=== PATIENT | male | born 1985 ===

== ENCOUNTER → 2024-03-30 | Outpatient (CLI) | payer BC ==
--- NOTE | 2024-03-31 08:39 | DVHSR ---
APPROVED REPORT EXAM: Two-dimensional and M-mode echocardiogram with Doppler and color Doppler. DIMENSIONS LVDd4.7 (3.8-5.7cm)LA (2D)4.0 (1.9-4.0cm)Aortic Root2.9 (2.0-3.7cm) LVDs3.2 (2.5-4.0cm)LA (MM) (1.9-4.0cm)Aortic Cusp Exc1.9 (1.5-2.0cm) EF (%) 59.6 (55-70%)Rt. Atrium4.4 (1.9-4.0cm)Asc. Aorta cm IVSd1.2 (0.7-1.1cm)RV (D)4.0 (1.8-2.4cm) PWd1.3 (0.7-1.1cm) Mitral Valve MitralMitral Stenosis E wave1.00m/sMV Mean GR.mmHg A wave0.56m/sMV Peak GR.28mmHg E/A ratio1.82D MVAcm2 DECEL [id number] 1/2 [place] Aortic Valve Aortic ValveAortic Stenosis V10.88m/Yina Mean GR.5mmHg V21.54m/Yina Peak GR.10mmHg Pulmonic Valve V20.76m/s Tricuspid Valve TR Velocity2.08m/s [id number] LEFT VENTRICLE The Ejection Fraction is >55%. RIGHT VENTRICLE The right ventricle is mildly dilated. ATRIA The left atrial size is normal. The right atrium is mildly dilated. MITRAL VALVE The mitral valve is normal in structure and function. Mitral regurgitation is trace to mild. PULMONIC VALVE The pulmonic valve is not well visualized. TRICUSPID VALVE The tricuspid valve is grossly normal. There is trace to mild tricuspid regurgitation. AORTIC VALVE The aortic valve opens well. No aortic regurgitation is present. GREAT VESSELS The aortic root is normal size. PERICARDIAL EFFUSION There is no pericardial effusion. Conclusion LUCITA EF >55% MILD TR
== END | disposition home or self-care (01) ==
LOC: Rad HDHVI 11:05
PROVIDERS: ATTEND Internal Medicine Cardiovascular Disease
DX: I08.1 Rheumatic disorders of both mitral and tricuspid valves (principal); I10 Essential (primary) hypertension
CPT/HCPCS: 93306

== ENCOUNTER → 2024-04-14 | Outpatient (CLI) | payer BC ==
[~2024-04-14] VITALS: Ht 180.3 cm; Wt 95.3 kg
--- NOTE | 2024-04-28 14:26 | DVHSR ---
APPROVED REPORT Exam: Nuclear Stress Test Indication: Screening for CAD Ht: 5 ft 11 in Wt: 210 lbs BSA: 2.15 m2 HR: 63 bpm BP: 153/82 mmHg BMI: 29.28 Rhythm: NSR Medical History Medical History: HTN Medications: Dyazide, Fish Oil, Garlic, Vit C, Lotensin Allergies: No known drug allergies Cardiac Risk Factors: Family Hx of CAD Stress Test Details Stress Test: Exercise stress testing was performed using a Ishan protocol. HR Resting HR: 63 bpmMax Heart Rate (APMHR): 180.900547 bpm Max HR Achieved: 157 bpmTarget HR (85% APMHR): 153.185071 bpm % of APMHR: 87.22 Recovery HR: 86 bpm HR response to stress: Normal HR response to stress BP Resting BP: 153/82 mmHg Max BP: 210/69 mmHg Recovery BP: 137/69 mmHg BP response to stress: Resting hypertension- Exaggerated response ECG Resting ECG: Sinus Rhythm Stress ECG: Sinus Tachycardia Arrhythmia: PACs Recovery ECG: Sinus Rhythm Clinical Reason for Termination: Target HR achieved Stress Symptoms: None Exercise duration: 8 min 45 sec Exercise capacity: 10.1 METs Stress ECG Conclusion ECG RESPONSE NON ISCHEMIC CARDIOLITE IMAGES NO PERFUSION ABNL LESS THAN 10% LIKELIHOOD FOR STRESS INDUCED ISCHEMIA EF 50% NM EXAM: Myocardial Perfusion REST/STRESS Imaging Protocol: Rest Tc-99m/Stress Tc-99m 1 day Resting Data Rest SPECT myocardial perfusion imaging was performed in supine position 30 minutes following the int ravenous injection of 10.61 mCi of Tc-99m Sestamibi. Time of rest injection: 817 Time of rest imagin Administration Route: IV Administration Site: Left AC Exercise Stress At peak stress, the patient was injected intravenously with 30.8 mCi of Tc-99m Sestamibi. Time of stress injection: 922 Time of stress imagin Administration Route: IV Administration Site: Left AC Heart Rate at time of stress injection: 157 bpm. Patient continued to exercise for 1 minute(s). Gated Stress SPECT was performed 15 minutes after stress injection. The images were gated to evaluate regional wall motion and calculate left ventricular ejection fracti on. Comments Cardiolite injection at 7 minutes, 44 seconds into test. Study Data Post stress, the left ventricular ejection was 50%.. Nuclear Conclusion ECG RESPONSE NON ISCHEMIC CARDIOLITE IMAGES NO PERFUSION ABNL LESS THAN 10% LIKELIHOOD FOR STRESS INDUCED ISCHEMIA EF 50%
== END | disposition home or self-care (01) ==
LOC: Rad HDHVI 08:09
PROVIDERS: ATTEND Internal Medicine Cardiovascular Disease
DX: Z13.6 Encounter for screening for cardiovascular disorders (principal); I10 Essential (primary) hypertension; R00.0 Tachycardia, unspecified; I49.1 Atrial premature depolarization; Z82.49 Family history of ischemic heart disease and other diseases of the circulatory system
CPT/HCPCS: 78452; 93017; A9500; 96374